=== PATIENT | male | born 1935 | race African-American/Black ===

== ENCOUNTER 2023-08-31 02:46 | Inpatient (IN) | payer OTHER, SELFPAY ==
[2023-08-31] VITALS (31 sets, daily range): BP systolic 108–152; BP diastolic 62–82; PULSE 58–88; RESP 14–27; TEMP 36.2–36.6; O2SAT 93–100
--- NOTE | ~2023-08-31 | CT_ITS ---
Clinical Indication: Shortness of breath CT Scan of the Chest with Contrast: Technique: Contiguous sections were acquired throughout the chest after intravenous administration of 100 cc of Omnipaque 350. Dose reduction technique was used on this scan by utilizing automated expos ure control and iterative reconstruction technique. The dose-length product (DLP) was 844.70 mGy-cm. Findings: There is no evidence of any significant mediastinal, hilar or axillary lymphadenopathy. There is no f illing defect in the pulmonary arterial tree to suggest pulmonary embolus. There is no evidence of ao rtic dissection or aneurysm. There is no evidence of pleural or pericardial effusion. There is moderate emphysema and/or chronic interstitial disease in the lungs. No pulmonary nodule or consolidation evident. Images through the upper abdomen reveal no abnormalities. Impression: No evidence of pulmonary embolus, aortic dissection, or aortic aneurysm. Moderate emphysema and/or chronic interstitial disease. Reviewed, dictated and finalized at [facility]. H REPAIRER Impression: No evidence of pulmonary embolus, aortic dissection, or aortic aneurysm. Moderate emphysema and/or chronic interstitial disease.
--- NOTE | ~2023-08-31 | XR_ITS ---
Clinical Indication: Cough AP and lateral views of the chest: Comparison: None Findings: There is hazy bibasilar airspace disease. No definite pleural effusions.. Cardiomediastina l silhouette is within normal limits. Bones and soft tissues are unremarkable. Impression: Probable mild bibasilar pulmonary edema. Correlate clinically for infection. Reviewed, dictated and finalized at [facility]. N CLEANER Impression: Probable mild bibasilar pulmonary edema. Correlate clinically for infection.
--- NOTE | 2023-08-31 03:03 | ECG_ITS ---
Measurements Intervals [place] Rate: 67 P: 47 MO: 250 QRS: -52 QRSD: 140 T: -20 QT: 420 QTc: 446 Interpretive Statements SINUS RHYTHM WITH FIRST DEGREE AV BLOCK RIGHT BUNDLE BRANCH BLOCK [120+ ms QRS DURATION, UPRIGHT V1, 40+ ms S IN I/aVL/V4/V5/V6] LEFT ANTERIOR FASCICULAR BLOCK [QRS AXIS <= -45, QR IN I, RS IN II] VOLTAGE CRITERIA FOR LVH [MEETS CRITERIA IN ONE OF: R(aVL), S(V1), R(V5), R(V5/V6)+S(V1)] ABNORMAL ECG NO PREVIOUS ECG AVAILABLE FOR COMPARISON Electronically Signed On 08-31-2023 7:19:02 RESIDENCE SUPERVISOR by Davin Horowitz M.D.
[2023-08-31 03:57] LABS: Basophils Absolute Auto 0.1 K/mm3 (0.0-0.1); Basophils Percent Auto 0.7 % (0.2-1.2); Eosinophils Absolute Auto 0.1 K/mm3 (0-0.3); Hemoglobin 11.7 g/dL (14.0-18.0); Immature Granulocyte Absolute 0.04 K/mm3 (0.00-0.031); Immature Granulocyte Percent A 0.6 % (0-0.5); Lymphocytes Absolute Auto 2.14 K/mm3 (0.9-3.2); Lymphocytes Percent Auto 30.3 % (18.3-44.2); Mean Corpuscular HGB Conc 30.8 g/dl (32-36); Mean Corpuscular Hemoglobin 29.1 pg (26-34); Mean Corpuscular Volume 94.5 fl (80-100); Mean Platelet Volume 10.1 fl (7.4-10.4); Monocytes Absolute Auto 0.7 K/mm3 (0.1-0.6); Monocytes Percent Auto 9.2 % (2.6-8.5); Neutrophils Percent Auto 57.2 % (45.5-73.1); Platelet Count Result 194 k/mm3 (150-375); Red Blood Count 4.02 M/mm3 (4.6-6.20); Red Cell Distribution Width 15.2 % (11.5-14.5); White Blood Count 7.1 K/mm3 (4.5-10.0)
[2023-08-31 04:10] LABS: Alanine Aminotransferase 11 U/L (6-50); Albumin Level 3.4 g/dL (3.5-5.1); Alkaline Phosphatase 111 U/L (38-126); Anion Gap 5 mmol/L (8-16); Aspartate Amino Transferase 27 U/L (17-59); Bilirubin,Total 0.5 mg/dL (0.2-1.3); Blood Urea Nitrogen 22 mg/dL (9-20); Calcium 8.8 mg/dL (8.4-10.2); Carbon Dioxide 25 mmol/L (22-30); Chloride 111 mmol/L (98-107); Estimated CRCL calculation 39 ml/min; Estimated Glomerular Filt Rate > 60; Glucose 119 mg/dL (65-110); Lactic Acid Reflex 1.3 mmol/L (0.7-2.0); Lipase 138 U/L (23-300); Magnesium 2.2 mg/dL (1.6-2.3); Potassium 4.1 mmol/L (3.4-5.0); Sodium 141 mmol/L (137-145)
[2023-08-31 04:12] LABS: Appearance Urine Clear (Clear); Bacteria Urine None Seen /hpf; Bilirubin Urine Negative (Negative); Blood Urine Negative (Negative); Color Urine Yellow (Yellow); Glucose Urine UA Negative (Negative); Ketones Urine Negative (Negative); Leukocyte Esterase Ur 2+ LEU/UL (Negative); Nitrate Urine Negative (Negative); Non Pathogenic Casts 0-2; Protein Urine Negative (Negative); RBC Urine 0-2 /hpf (0-2); Specific Grav Ur 1.017 (1.001-1.035); Squamous Epithelial Cell Urine None seen /hpf (Few); WBC Urine 21-50 /hpf; pH Urine 5.5 (5.0-9.0)
[2023-08-31 04:17] LABS: Add Urine Microscopic? YES
[2023-08-31 04:17] LABS: INR 1.1; Prothrombin Time 14.5 Seconds (11.1-14.7)
[2023-08-31 04:18] LABS: Partial Thromboplastin Time 27.5 SECONDS (22.3-36.8)
[2023-08-31 04:22] LABS: NT Pro B Type Natriuretic Pept 376 pg/mL (19.9-100); Troponin I 0.037 ng/mL (0.000-0.034)
[2023-08-31 04:25] LABS: Procalcitonin 0.1 ng/mL
[2023-08-31 04:34] LABS: Influenza A QL RT-PCR Negative (Negative); Influenza B QL RT-PCR Negative (Negative); RSV RNA, RT-PCR Negative (Negative); SARS-CoV-2 RNA PCR Negative (Negative)
--- NOTE | 2023-08-31 05:13 | ED.GENADULT ---
HPI - General Adult General Chief complaint: Upper Respiratory Infection Stated complaint: short of breath Time Seen by Provider: 08/31/23 03:14 History of Present Illness HPI narrative: Patient 88-year-old gentleman who presents emergency department with chief complaint of shortness of breath and cough. Patient has recently been diagnosed with RSV is a resident of local assisted and had a chest x-ray that showed possibility for pneumonia. The patient has had no fever the family has noticed that he has had increased dyspnea on exertion and has not been improving. Related Data Allergies Allergy/AdvReac Type Severity Reaction Status Date / Time pentazocine Allergy Unknown Other Verified 08/31/23 02:48 naloxone Allergy Other Verified 08/31/23 02:48 Review of Systems Review of Systems: A 10 system review of systems was completed on the patient and is negative except for what is stated in the HPI. Nursing and ancillary documentation was reviewed. Exam Narrative: GENERAL: Well-appearing, well-nourished, and in no acute distress. HEAD: Normocephalic, atraumatic. EYES: PERRLA and EOMI. ENT: Nares clear, no rhinorrhea or epistaxis. Mucous membranes moist. NECK: Supple. CHEST: Clear to auscultation. No respiratory distress. HEART: Regular rate and rhythm. No murmur heard. Normal peripheral pulses. ABDOMEN: Soft, nontender, nondistended, normal active bowel sounds. EXTREMITIES: Normal range of motion. No edema. SKIN: Warm, dry, no rash. NEURO: No focal deficits. Alert and oriented x3. PSYCH: Normal mood and affect. Course Vital Signs Vital signs: Vital Signs Temperature 36.2 C L 08/31/23 02:53 Pulse Rate 79 08/31/23 02:53 Respiratory Rate 20 08/31/23 02:53 Blood Pressure 144/62 H 08/31/23 02:53 Pulse Oximetry 93 08/31/23 02:53 Oxygen Delivery Room Air 08/31/23 02:53 Temperature 36.2 C L 08/31/23 02:53 Pulse Rate 79 08/31/23 02:53 Respiratory Rate 20 08/31/23 02:53 Blood Pressure 144/62 H 08/31/23 02:53 Pulse Oximetry 93 08/31/23 02:53 Oxygen Delivery Room Air 08/31/23 02:53 Medical Decision Making [facility] Narrative Medical decision making narrative: The diagnosis was pneumonia, CHF, UTI, NSTEMI, Laboratory studies were obtained on the patient showed a white count of 7.0 electrolytes are within normal limits troponin was slightly elevated at 0.039 BNP was 376 lipase is normal procalcitonin 0.1 urinalysis showed 21-50 white blood cells in the urine 2+ leukocyte esterase Viral study was initially read as negative but now is positive for RSV CTA chest showed no evidence of PE Chest x-ray showed some possible interstitial edema The patient was started on Rocephin for the urinary tract infection. The patient was given aspirin and will be treated on troponins. The patient admitted to IMU for observation Vital Signs Vital Signs: Vital Signs Temperature 36.2 C L 08/31/23 02:53 Pulse Rate 79 08/31/23 02:53 Respiratory Rate 20 08/31/23 02:53 Blood Pressure 144/62 H 08/31/23 02:53 Pulse Oximetry 93 08/31/23 02:53 Oxygen Delivery Room Air 08/31/23 02:53 Temperature 36.2 C L 08/31/23 02:53 Pulse Rate 79 08/31/23 02:53 Respiratory Rate 20 08/31/23 02:53 Blood Pressure 144/62 H 08/31/23 02:53 Pulse Oximetry 93 08/31/23 02:53 Oxygen Delivery Room Air 08/31/23 02:53 Lab Data 08/31/23 06:33 08/31/23 03:50 Labs: Lab Results 08/31/23 08/31/23 08/31/23 Range/Units 03:49 03:50 03:50 WBC 7.1 (4.5-10.0) K/mm3 RBC 4.02 L (4.6-6.20) M/mm3 Hgb 11.7 L (14.0-18.0) g/dL Hct 38.0 L (42.0-52.0) % MCV 94.5 (80-100) fl MCH 29.1 (26-34) pg MCHC 30.8 L (32-36) g/dl RDW 15.2 H (11.5-14.5) % Plt Count 194 (150-375) k/mm3 MPV 10.1 (7.4-10.4) fl Immature Gran % (Auto) 0.6 H (0-0.5) % Neut % (Auto) 57.2 (45.5-73.1) % Lymph % (Auto) 30.3
[2023-08-31 06:39] LABS: Basophils Percent Auto 0.4 % (0.2-1.2); Eosinophils Absolute Auto 0.1 K/mm3 (0-0.3); Eosinophils Percent Auto 1.6 % (0-4.4); Hematocrit 36.9 % (42.0-52.0); Hemoglobin 11.4 g/dL (14.0-18.0); Immature Granulocyte Absolute 0.03 K/mm3 (0.00-0.031); Immature Granulocyte Percent A 0.4 % (0-0.5); Lymphocytes Absolute Auto 2.27 K/mm3 (0.9-3.2); Lymphocytes Percent Auto 32.2 % (18.3-44.2); Mean Corpuscular HGB Conc 30.9 g/dl (32-36); Mean Corpuscular Hemoglobin 29.5 pg (26-34); Mean Corpuscular Volume 95.3 fl (80-100); Mean Platelet Volume 9.9 fl (7.4-10.4); Monocytes Absolute Auto 0.7 K/mm3 (0.1-0.6); Monocytes Percent Auto 10.1 % (2.6-8.5); Neutrophils Absolute Auto 3.9 K/mm3 (1.3-6.7); Neutrophils Percent Auto 55.3 % (45.5-73.1); Platelet Count Result 185 k/mm3 (150-375); Red Blood Count 3.87 M/mm3 (4.6-6.20); Red Cell Distribution Width 15.2 % (11.5-14.5)
[2023-08-31] MEDS: ASPIRIN 81 MG CHEWABLE TABLET 324 MG PO (06:42)
--- NOTE | 2023-08-31 06:42 | PC.NURSE ---
unable to scan medications. scanner in er room 7 not working.
[2023-08-31 07:04] LABS: Troponin I 0.039 ng/mL (0.000-0.034)
--- NOTE | 2023-08-31 07:15 | ECG_ITS ---
Measurements Intervals [place] Rate: 65 P: 26 MI: 268 QRS: -59 QRSD: 157 T: 12 QT: 416 QTc: 435 Interpretive Statements SINUS RHYTHM WITH FIRST DEGREE AV BLOCK MARKED LEFT AXIS DEVIATION [QRS AXIS < -30] RIGHT BUNDLE BRANCH BLOCK [120+ ms QRS DURATION, UPRIGHT V1, 40+ ms S IN I/aVL/V4/V5/V6] MINIMAL VOLTAGE CRITERIA FOR LVH, CONSIDER NORMAL VARIANT [MEETS CRITERIA IN ONE OF: R(aVL), S(V1), R(V5), R(V5/V6)+S(V1)] ABNORMAL ECG COMPARED TO ECG 08/31/2023 03:14:56 NO DIFFERENCE Electronically Signed On 08-31-2023 7:21:53 VICTIMS ADVOCATE CLERK/SPECIALIST by Davin Horowitz M.D.
[2023-08-31 07:17] LABS: Influenza A QL RT-PCR Negative (Negative); Influenza B QL RT-PCR Negative (Negative); RSV RNA, RT-PCR Positive (Negative); SARS-CoV-2 RNA PCR Negative (Negative)
--- NOTE | 2023-08-31 12:33 | ADMGEN ---
This patient, Oscar Grnat, was admitted to IMU Room 203-01 at 1147. Patient/family oriented to hospital policies and general routines including ID bracelet, bed and alarms, visiting hours, pain management, procedures, bathroom and other care routines, personal items, smoking policy, room service/diet, and visiting hours. Information on how to activate the Rapid Response Team has been discussed. Patient/Family are encouraged to report perceived risks to care and to ask questions if they do not understand what they are told or what they should do.
--- NOTE | 2023-08-31 16:09 | PM.IMHP ---
H&P: HPI History of Present Illness Date/Time: 08/31/23 16:09 Chief Complaint: Shortness of breath and cough Narrative: Patient 88-year-old gentleman who presents emergency department with chief complaint of shortness of breath and cough.? Patient has recently been diagnosed with RSV is a resident of local [facility] and had a chest x-ray that showed possibility for pneumonia.? The patient has had no fever the family has noticed that he has had increased dyspnea on exertion and has not been improving. He is confused and not able to provide me with the history of present illness. Review of Systems Review of Systems: - CONSTITUTIONAL: Denies weight loss, fever and chills. - HEENT: Denies changes in vision and hearing - RESPIRATORY: See HPI - CV: Denies palpitations and CP. - GI: Denies abdominal pain, nausea, vomiting and diarrhea. - : Denies dysuria and urinary frequency. - MSK: Denies myalgia and joint pain. - SKIN: Denies rash and pruritus. - NEUROLOGICAL: Denies headache and syncope. - PSYCHIATRIC: Denies recent changes in mood. Denies anxiety and depression. [facility] Family History Family History (Updated 08/31/23 @ 11:58 by Tracy Nelson RN) Father Cancer of lung Social History Social History Smoking status: Current every day smoker Alcohol intake: never Substance use: never Do You Feel Safe in your Home?: Yes Lack of Transportation: No Lack of Food: Never True Current Housing: I Have Housing Concerned About Future Housing: No Difficulty Paying Gas/Electric Bills: No Difficulty Paying for Meds: No Currently Unemployed: No Education: Associate Degree Difficulty w/ Childcare or Family Care: No Spiritual care concerns: No Meds Home Medications and Allergies Home Medications Medication Instructions Recorded Confirmed Type acetaminophen 500 mg tablet 1,000 mg PO QID PRN Pain (Scale 08/31/23 08/31/23 History Score 1-3) albuterol sulfate 90 mcg/actuation 2 puff inhalation Q8H 08/31/23 08/31/23 History aerosol inhaler amitriptyline 10 mg tablet 20 mg PO HS 08/31/23 08/31/23 History amlodipine 5 mg tablet 5 mg DAILY 08/31/23 08/31/23 History ascorbic acid (vitamin C) 500 mg 500 mg PO DAILY 08/31/23 08/31/23 History tablet aspirin 81 mg tablet 81 mg PO DAILY 08/31/23 08/31/23 History atorvastatin 40 mg tablet 40 mg DAILY 08/31/23 08/31/23 History budesonide-formoterol HFA 80 1 inh inhalation BID 08/31/23 08/31/23 History mcg-4.5 mcg/actuation aerosol inhaler (Symbicort) calcium carbonate 600 mg calcium 600 mg PO DAILY 08/31/23 08/31/23 History (1,500 mg) tablet cetirizine 10 mg tablet 10 mg PO DAILY 08/31/23 08/31/23 History cholecalciferol (vitamin D3) 50 50 mcg PO DAILY 08/31/23 08/31/23 History mcg (2,000 unit) tablet ferrous sulfate 325 mg (65 mg 325 mg PO DAILY 08/31/23 08/31/23 History iron) tablet finasteride 5 mg tablet 5 mg DAILY 08/31/23 08/31/23 History fluticasone propionate 50 2 spray intranasal POST-TRANSFUSION 08/31/23 08/31/23 History mcg/actuation nasal spray,suspension guaifenesin 400 mg tablet 400 mg PO BID 08/31/23 08/31/23 History hydrocodone 7.5 mg-acetaminophen 1 tablet TID 08/31/23 08/31/23 History 325 mg tablet ipratropium 0.5 mg-albuterol 3 mg 3 ml inhalation Q6H 08/31/23 08/31/23 History (2.5 mg base)/3 mL nebulization soln latanoprost 0.005 % eye drops 1 drp HS 08/31/23 08/31/23 History lisinopril 20 mg tablet 20 mg DAILY 08/31/23 08/31/23 History megestrol 400 mg/10 mL (40 mg/mL) 400 mg BID 08/31/23 08/31/23 History oral suspension memantine 5 mg tablet 5 mg DAILY 08/31/23 08/31/23 History omeprazole 20 mg capsule,delayed 20 mg DAILY 08/31/23 08/31/23 History release polyethylene glycol 3350 17 gram 17 g PO DAILY PRN Constipation 08/31/23 08/31/23 History oral powder packet psyllium husk 3.4 gram/5.4 gram 1 ts
[2023-08-31] MEDS: MEGESTROL ACETATE (*CHEMO) ORAL SUSP 40 MG/ML SYR 400 MG PO (17:19)
[2023-08-31] MEDS: FLUTICASONE/SALMETEROL 45-21 MCG INHALER 1 PUFF 2 PUFF INHALATION (20:07)
[2023-08-31] MEDS: IPRATROPIUM 0.5 MG/ALBUTEROL SULFATE 2.5 MG AMPUL.NEB 3 ML INHALATION (20:07)
[2023-08-31] MEDS: SERTRALINE HCL 50 MG TABLET 100 MG BY MOUTH (21:18)
[2023-08-31] MEDS: AMITRIPTYLINE HCL 10 MG TABLET 20 MG PO (21:18)
[2023-08-31] MEDS: guaiFENesin 12 HR 600 MG TABCR PO (21:18)
[2023-08-31] MEDS: LATANOPROST 0.005% OP SOLN 2.5 ML BTL 1 DROP EACH EYE (21:20)
[2023-09-01] VITALS (13 sets, daily range): BP systolic 120–153; BP diastolic 63–70; PULSE 63–74; RESP 14–18; TEMP 36.4–36.6; O2SAT 96–100
[2023-09-01 06:46] LABS: Basophils Absolute Auto 0.1 K/mm3 (0.0-0.1); Basophils Percent Auto 0.7 % (0.2-1.2); Eosinophils Absolute Auto 0.1 K/mm3 (0-0.3); Eosinophils Percent Auto 1.9 % (0-4.4); Hematocrit 40.4 % (42.0-52.0); Hemoglobin 12.6 g/dL (14.0-18.0); Immature Granulocyte Absolute 0.03 K/mm3 (0.00-0.031); Immature Granulocyte Percent A 0.4 % (0-0.5); Lymphocytes Absolute Auto 2.09 K/mm3 (0.9-3.2); Lymphocytes Percent Auto 30.9 % (18.3-44.2); Mean Corpuscular HGB Conc 31.2 g/dl (32-36); Mean Corpuscular Hemoglobin 29.3 pg (26-34); Mean Platelet Volume 9.9 fl (7.4-10.4); Monocytes Absolute Auto 0.7 K/mm3 (0.1-0.6); Monocytes Percent Auto 9.9 % (2.6-8.5); Neutrophils Absolute Auto 3.8 K/mm3 (1.3-6.7); Neutrophils Percent Auto 56.2 % (45.5-73.1); Platelet Count Result 199 k/mm3 (150-375); Red Cell Distribution Width 15.1 % (11.5-14.5); White Blood Count 6.8 K/mm3 (4.5-10.0)
[2023-09-01 06:57] LABS: Alanine Aminotransferase 10 U/L (6-50); Albumin Level 3.5 g/dL (3.5-5.1); Alkaline Phosphatase 101 U/L (38-126); Anion Gap 6 mmol/L (8-16); Aspartate Amino Transferase 27 U/L (17-59); Bilirubin,Total 0.6 mg/dL (0.2-1.3); Blood Urea Nitrogen 18 mg/dL (9-20); Calcium 8.9 mg/dL (8.4-10.2); Carbon Dioxide 23 mmol/L (22-30); Chloride 110 mmol/L (98-107); Estimated CRCL calculation 39 ml/min; Estimated Glomerular Filt Rate > 60; Glucose 88 mg/dL (65-110); Magnesium 2.2 mg/dL (1.6-2.3); Potassium 4.4 mmol/L (3.4-5.0); Sodium 139 mmol/L (137-145)
[2023-09-01] MEDS: FLUTICASONE/SALMETEROL 45-21 MCG INHALER 1 PUFF 2 PUFF INHALATION ×2 (08:18→21:30)
[2023-09-01] MEDS: IPRATROPIUM 0.5 MG/ALBUTEROL SULFATE 2.5 MG AMPUL.NEB 3 ML INHALATION ×3 (08:19→21:20)
[2023-09-01] MEDS: LORATADINE 10 MG TABLET PO (11:23)
[2023-09-01] MEDS: ENOXAPARIN 40 MG/0.4 ML SYRINGE SUB-Q (11:23)
[2023-09-01] MEDS: amLODIPine BESYLATE 5 MG TABLET BY MOUTH (11:23)
[2023-09-01] MEDS: guaiFENesin 12 HR 600 MG TABCR PO ×2 (11:24→21:48)
[2023-09-01] MEDS: ASPIRIN 81 MG ENTERIC TABLET PO (11:24)
[2023-09-01] MEDS: CALCIUM CARBONATE (OSCAL) 500 MG TABLET PO (11:24)
[2023-09-01] MEDS: ASPIRIN 81 MG CHEWABLE TABLET PO (11:24)
[2023-09-01] MEDS: PANTOPRAZOLE 40 MG TABLET PO (11:24)
[2023-09-01] MEDS: MEMANTINE 5 MG TABLET BY MOUTH (11:24)
[2023-09-01] MEDS: FERROUS SULFATE 325 MG TABLET DR BY MOUTH (11:24)
[2023-09-01] MEDS: ASCORBIC ACID 500 MG TABLET PO (11:25)
[2023-09-01] MEDS: TAMSULOSIN HCL 0.4 MG CAPSULE PO (11:25)
[2023-09-01] MEDS: FINASTERIDE 5 MG TABLET BY MOUTH (11:25)
[2023-09-01] MEDS: CHOLECALCIFEROL 1,000 UNITS TABLET 2000 UNITS PO (11:25)
[2023-09-01] MEDS: lisinopriL 20 MG TABLET BY MOUTH (11:25)
[2023-09-01] MEDS: VITAMIN B COMPLEX CAPSULE 1 CAP PO (11:25)
[2023-09-01] MEDS: ATORVASTATIN 40 MG TABLET BY MOUTH (11:26)
[2023-09-01] MEDS: FLUTICASONE PROPIONATE 0.05% NA SPR 16 GM BTL (*BKC) 2 SPRAY NASAL (11:28)
[2023-09-01] MEDS: MEGESTROL ACETATE (*CHEMO) ORAL SUSP 40 MG/ML SYR 400 MG PO ×2 (11:35→17:50)
[2023-09-01] MEDS: PSYLLIUM POWDER PACKET 1 PACKET PO (11:35)
--- NOTE | 2023-09-01 13:43 | PM.IMPN ---
Progress Note: A&P Assessment and Plan (1) Acute UTI: Code(s): N39.0 - Urinary tract infection, site not specified Status: Acute (2) RSV infection: Code(s): B33.8 - Other specified viral diseases Status: Acute (3) Elevated troponin: Code(s): R79.89 - Other specified abnormal findings of blood chemistry Status: Acute Plan This is the 88-year-old man who presented with shortness of breath and cough. Is a resident of a local long term. Chest x-ray done in the long term showed possibility of pneumonia and hence was sent to the ER for evaluation. He has been increasingly short of breath over the past few days. On ED evaluation his vitals were stable oxygenation were adequate on room air. Laboratory evaluation revealed WBC count of 7 hemoglobin of 11 point fall or which is at baseline. CMP within normal limit. Procalcitonin was 0.1 influenza RSV COVID negative. Lactic acid was 1.3. Troponin was mildly elevated at 0.037 BNP was 376. Repeat troponin was 0.039 remain flat UA was positive for UTI with WBC 20 1-50 with positive leukocyte esterase. Repeat respiratory swab came back positive for RSV remains negative for COVID influenza a and B negative. EKG with sinus rhythm first-degree AV block marked left axis deviation with right bundle-branch block. Serial troponins flat not suggestive of acute coronary syndrome. Chest x-ray showed probable mild bibasilar pulmonary edema. CTA was done which showed no evidence of PE aortic dissection or aortic aneurysm. There is moderate emphysema and/or chronic interstitial disease. Urine culture with Gram-positive organism less than 10,000 isolated and blood cultures pending. He has been started on ceftriaxone which will be continued. RSV infection Dementia History of hypertension/hyperlipidemia/BPH/COPD DVT prophylaxis Lovenox Subjective Date/time seen: 09/01/23 13:43 Interval history: No overnight events. Feels well no chest pain no shortness of breath minimal cough Review of Systems Review of Systems: All systems reviewed & are unremarkable except as noted in HPI and below Exam Narrative: GENERAL: Well-appearing, well-nourished, and in no acute distress. HEAD: Normocephalic, atraumatic. EYES: PERRLA and EOMI. ENT: Nares clear, no rhinorrhea or epistaxis.? Mucous membranes moist. NECK: Supple. CHEST: Clear to auscultation.? No respiratory distress. HEART: Regular rate and rhythm.? No murmur heard.? Normal peripheral pulses. ABDOMEN: Soft, nontender, nondistended, normal active bowel sounds. EXTREMITIES: Normal range of motion.? No edema. SKIN: Warm, dry, no rash. NEURO: No focal deficits.? Alert and oriented x3. PSYCH: Normal mood and affect. Objective Data Vital Signs Vital Signs: Vital Signs - 24 hr 08/31/23 14:00 08/31/23 16:00 08/31/23 16:00 Temperature 97.8 F Pulse Rate 64 60 Respiratory Rate 16 Blood Pressure 152/67 H Pulse Oximetry 100 100 Oxygen Delivery Room Air 08/31/23 16:00 08/31/23 19:40 08/31/23 20:07 Temperature 97.6 F Pulse Rate 71 60 62 Respiratory Rate 18 18 Blood Pressure 108/64 Pulse Oximetry 98 Oxygen Delivery 08/31/23 20:11 08/31/23 20:14 09/01/23 05:37 Temperature 97.9 F Pulse Rate 62 64 67 Respiratory Rate 18 18 Blood Pressure 153/63 H Pulse Oximetry 97 100 Oxygen Delivery Room Air 09/01/23 08:20 09/01/23 08:15 09/01/23 08:24 Temperature Pulse Rate 69 73 Respiratory Rate 18 18 Blood Pressure Pulse Oximetry 96 Oxygen Delivery Room Air 09/01/23 11:19 09/01/23 08:00 09/01/23 11:35 Temperature Pulse Rate 73 Respiratory Rate 18 Blood Pressure Pulse Oximetry 96 Oxygen Delivery Room Air Room Air Room Air Intake/Output Intake/Output: Intake & Output 08/29/23 08/30/23 08/31/23 09/01/23 23:59 23:59 23:59 23:59 Intake Total 1010 370 Balance 1010 370 Meds/Results Medications: Active Medications Generi
[2023-09-01] MEDS: HYDROcodone/acetaminophen (*CRX) 7.5-325 MG TABLET 1 TAB BY MOUTH (17:53)
--- NOTE | 2023-09-01 19:45 | PC.NURSE ---
On 09/01/23, the student, Rick Le, provided care and completed [facility] documentation on this patient. I have reviewed the student's documentation and agree with the findings.
[2023-09-01] MEDS: LATANOPROST 0.005% OP SOLN 2.5 ML BTL 1 DROP EACH EYE (21:48)
[2023-09-01] MEDS: SERTRALINE HCL 50 MG TABLET 100 MG BY MOUTH (21:48)
[2023-09-01] MEDS: AMITRIPTYLINE HCL 10 MG TABLET 20 MG PO (21:48)
[2023-09-02] VITALS (12 sets, daily range): BP systolic 109–116; BP diastolic 54–62; PULSE 60–75; RESP 16–20; TEMP 36.3–36.8; O2SAT 96–98
[2023-09-02] MEDS: HYDROcodone/acetaminophen (*CRX) 7.5-325 MG TABLET 1 TAB BY MOUTH ×2 (01:11→17:41)
[2023-09-02] MEDS: IPRATROPIUM 0.5 MG/ALBUTEROL SULFATE 2.5 MG AMPUL.NEB 3 ML INHALATION ×4 (02:51→20:59)
[2023-09-02] MEDS: FLUTICASONE/SALMETEROL 45-21 MCG INHALER 1 PUFF 2 PUFF INHALATION ×2 (08:46→20:58)
[2023-09-02] MEDS: ENOXAPARIN 40 MG/0.4 ML SYRINGE SUB-Q (10:04)
[2023-09-02] MEDS: ASPIRIN 81 MG ENTERIC TABLET PO (10:04)
[2023-09-02] MEDS: FINASTERIDE 5 MG TABLET BY MOUTH (10:04)
[2023-09-02] MEDS: CHOLECALCIFEROL 1,000 UNITS TABLET 2000 UNITS PO (10:04)
[2023-09-02] MEDS: PSYLLIUM POWDER PACKET 1 PACKET PO (10:04)
[2023-09-02] MEDS: amLODIPine BESYLATE 5 MG TABLET BY MOUTH (10:06)
[2023-09-02] MEDS: MEGESTROL ACETATE (*CHEMO) ORAL SUSP 40 MG/ML SYR 400 MG PO ×2 (10:06→17:42)
[2023-09-02] MEDS: MEMANTINE 5 MG TABLET BY MOUTH (10:07)
[2023-09-02] MEDS: CALCIUM CARBONATE (OSCAL) 500 MG TABLET PO (10:07)
[2023-09-02] MEDS: ATORVASTATIN 40 MG TABLET BY MOUTH (10:07)
[2023-09-02] MEDS: PANTOPRAZOLE 40 MG TABLET PO (10:07)
[2023-09-02] MEDS: guaiFENesin 12 HR 600 MG TABCR PO ×2 (10:07→21:10)
[2023-09-02] MEDS: ASCORBIC ACID 500 MG TABLET PO (10:07)
[2023-09-02] MEDS: lisinopriL 20 MG TABLET BY MOUTH (10:08)
[2023-09-02] MEDS: VITAMIN B COMPLEX CAPSULE 1 CAP PO (10:08)
[2023-09-02] MEDS: LORATADINE 10 MG TABLET PO (10:08)
[2023-09-02] MEDS: FERROUS SULFATE 325 MG TABLET DR BY MOUTH (10:09)
[2023-09-02] MEDS: TAMSULOSIN HCL 0.4 MG CAPSULE PO (10:09)
[2023-09-02] MEDS: FLUTICASONE PROPIONATE 0.05% NA SPR 16 GM BTL (*BKC) 2 SPRAY NASAL (10:11)
--- NOTE | 2023-09-02 12:47 | PM.IMPN ---
Progress Note: A&P Assessment and Plan (1) Acute UTI: Code(s): N39.0 - Urinary tract infection, site not specified Status: Acute (2) RSV infection: Code(s): B33.8 - Other specified viral diseases Status: Acute (3) Elevated troponin: Code(s): R79.89 - Other specified abnormal findings of blood chemistry Status: Acute Plan This is the 88-year-old man who presented with shortness of breath and cough. Is a resident of a local [facility]. [facility] x-ray done in the [facility] showed possibility of pneumonia and hence was sent to the ER for evaluation. He has been increasingly short of breath over the past few days. On ED evaluation his vitals were stable oxygenation were adequate on room air. Laboratory evaluation revealed WBC count of 7 hemoglobin of 11 point fall or which is at baseline. CMP within normal limit. Procalcitonin was 0.1 influenza RSV COVID negative. Lactic acid was 1.3. Troponin was mildly elevated at 0.037 BNP was 376. Repeat troponin was 0.039 remain flat UA was positive for UTI with WBC 20 1-50 with positive leukocyte esterase. Repeat respiratory swab came back positive for RSV remains negative for COVID influenza a and B negative. EKG with sinus rhythm first-degree AV block marked left axis deviation with right bundle-branch block. Serial troponins flat not suggestive of acute coronary syndrome. Chest x-ray showed probable mild bibasilar pulmonary edema. CTA was done which showed no evidence of PE aortic dissection or aortic aneurysm. There is moderate emphysema and/or chronic interstitial disease. Urine culture with Gram-positive organism less than 10,000 isolated and blood cultures pending. He has been started on ceftriaxone which will be continued. Will switch to oral cefdinir RSV infection Dementia History of hypertension/hyperlipidemia/BPH/COPD DVT prophylaxis Lovenox Disposition: Care coordination on board for placement Subjective Date/time seen: 09/02/23 12:47 Interval history: No overnight events. Feels okay. Minimal cough denies any shortness of breath Review of Systems Review of Systems: All systems reviewed & are unremarkable except as noted in HPI and below Exam Narrative: GENERAL: Well-appearing, well-nourished, and in no acute distress. HEAD: Normocephalic, atraumatic. EYES: PERRLA and EOMI. ENT: Nares clear, no rhinorrhea or epistaxis.? Mucous membranes moist. NECK: Supple. CHEST: Clear to auscultation.? No respiratory distress. HEART: Regular rate and rhythm.? No murmur heard.? Normal peripheral pulses. ABDOMEN: Soft, nontender, nondistended, normal active bowel sounds. EXTREMITIES: Normal range of motion.? No edema. SKIN: Warm, dry, no rash. NEURO: No focal deficits.? Alert and oriented x3. PSYCH: Normal mood and affect. Objective Data Vital Signs Vital Signs: Vital Signs - 24 hr 09/01/23 14:18 09/01/23 14:48 09/01/23 14:57 Temperature 97.8 F Pulse Rate 63 74 68 Respiratory Rate 14 18 18 Blood Pressure 128/70 Pulse Oximetry 100 Oxygen Delivery 09/01/23 20:21 09/01/23 21:20 09/01/23 21:30 Temperature 97.6 F Pulse Rate 73 72 68 Respiratory Rate 18 18 18 Blood Pressure 120/68 Pulse Oximetry 97 Oxygen Delivery 09/01/23 21:45 09/01/23 20:00 09/02/23 02:51 Temperature Pulse Rate 68 65 Respiratory Rate 18 16 Blood Pressure Pulse Oximetry 96 96 Oxygen Delivery Room Air Room Air 09/02/23 02:56 09/02/23 05:56 09/02/23 08:46 Temperature 98 F Pulse Rate 68 60 60 Respiratory Rate 16 18 16 Blood Pressure 116/54 L Pulse Oximetry 97 Oxygen Delivery 09/02/23 08:57 Temperature Pulse Rate 62 Respiratory Rate 16 Blood Pressure Pulse Oximetry Oxygen Delivery Intake/Output Intake/Output: Intake & Output 08/30/23 08/31/23 09/01/23 09/02/23 23:59 23:59 23:59 23:59 Intake Total 1010 630 170 Balance 1010 630 170 Meds/Results Medications: Active Medicatio
--- NOTE | 2023-09-02 19:58 | PC.NURSE ---
On 09/02/23, the student, Rick Le, provided care and completed [facility] documentation on this patient. I have reviewed the student's documentation and agree with the findings.
[2023-09-02] MEDS: AMITRIPTYLINE HCL 10 MG TABLET 20 MG PO (21:10)
[2023-09-02] MEDS: LATANOPROST 0.005% OP SOLN 2.5 ML BTL 1 DROP EACH EYE (21:11)
[2023-09-02] MEDS: CEFDINIR 300 MG CAPSULE PO (21:11)
[2023-09-02] MEDS: SERTRALINE HCL 50 MG TABLET 100 MG BY MOUTH (21:11)
[2023-09-03] VITALS (7 sets, daily range): BP systolic 142; BP diastolic 66; PULSE 66–88; RESP 16–20; TEMP 37; O2SAT 96–98
[2023-09-03] MEDS: IPRATROPIUM 0.5 MG/ALBUTEROL SULFATE 2.5 MG AMPUL.NEB 3 ML INHALATION ×3 (02:13→14:27)
[2023-09-03] MEDS: HYDROcodone/acetaminophen (*CRX) 7.5-325 MG TABLET 1 TAB BY MOUTH (06:00)
[2023-09-03] MEDS: ASPIRIN 81 MG ENTERIC TABLET PO (09:53)
[2023-09-03] MEDS: VITAMIN B COMPLEX CAPSULE 1 CAP PO (09:53)
[2023-09-03] MEDS: TAMSULOSIN HCL 0.4 MG CAPSULE PO (09:53)
[2023-09-03] MEDS: ACETAMINOPHEN 500 MG TABLET 1000 MG PO (09:53)
[2023-09-03] MEDS: CHOLECALCIFEROL 1,000 UNITS TABLET 2000 UNITS PO (09:53)
[2023-09-03] MEDS: MEGESTROL ACETATE (*CHEMO) ORAL SUSP 40 MG/ML SYR 400 MG PO (09:53)
[2023-09-03] MEDS: CEFDINIR 300 MG CAPSULE PO (09:53)
[2023-09-03] MEDS: PSYLLIUM POWDER PACKET 1 PACKET PO (09:54)
[2023-09-03] MEDS: amLODIPine BESYLATE 5 MG TABLET BY MOUTH (09:54)
[2023-09-03] MEDS: FLUTICASONE PROPIONATE 0.05% NA SPR 16 GM BTL (*BKC) 2 SPRAY NASAL (09:54)
[2023-09-03] MEDS: MEMANTINE 5 MG TABLET BY MOUTH (09:54)
[2023-09-03] MEDS: guaiFENesin 12 HR 600 MG TABCR PO (09:54)
[2023-09-03] MEDS: LORATADINE 10 MG TABLET PO (09:54)
[2023-09-03] MEDS: ASCORBIC ACID 500 MG TABLET PO (09:54)
[2023-09-03] MEDS: CALCIUM CARBONATE (OSCAL) 500 MG TABLET PO (09:54)
[2023-09-03] MEDS: PANTOPRAZOLE 40 MG TABLET PO (09:54)
[2023-09-03] MEDS: ATORVASTATIN 40 MG TABLET BY MOUTH (09:54)
[2023-09-03] MEDS: lisinopriL 20 MG TABLET BY MOUTH (09:54)
[2023-09-03] MEDS: FINASTERIDE 5 MG TABLET BY MOUTH (09:54)
[2023-09-03] MEDS: FERROUS SULFATE 325 MG TABLET DR BY MOUTH (09:54)
[2023-09-03] MEDS: ENOXAPARIN 40 MG/0.4 ML SYRINGE SUB-Q (09:55)
[2023-09-03] MEDS: FLUTICASONE/SALMETEROL 45-21 MCG INHALER 1 PUFF 2 PUFF INHALATION (10:10)
--- NOTE | 2023-09-03 12:40 | PM.DS ---
DS: Admitting Diagnosis Discharge Date 09/03/2023 Admitting Diagnosis Shortness of breath DS: Discharge Diagnosis Discharge Diagnosis (1) Acute UTI: Code(s): N39.0 - Urinary tract infection, site not specified Status: Acute (2) RSV infection: Code(s): B33.8 - Other specified viral diseases Status: Acute (3) Elevated troponin: Code(s): R79.89 - Other specified abnormal findings of blood chemistry Status: Acute DS: Summary Hospital Course Hospital Course: This is the 88-year-old man who presented with shortness of breath and cough.? Is a resident of a local senior care.? Chest x-ray done in the senior care showed possibility of pneumonia and hence was sent to the ER for evaluation.? He has been increasingly short of breath over the past few days.? On ED evaluation his vitals were stable oxygenation were adequate on room air.? Laboratory evaluation revealed WBC count of 7 hemoglobin of 11 point fall or which is at baseline.? CMP within normal limit.? Procalcitonin was 0.1 influenza RSV COVID negative.? Lactic acid was 1.3.? Troponin was mildly elevated at 0.037 BNP was 376.? Repeat troponin was 0.039 remain flat UA was positive for UTI with WBC 20 1-50 with positive leukocyte esterase.? Repeat respiratory swab came back positive for RSV remains negative for COVID influenza a and B negative.? EKG with sinus rhythm first-degree AV block marked left axis deviation with right bundle-branch block.? Serial troponins flat not suggestive of acute coronary syndrome.? Chest x-ray showed probable mild bibasilar pulmonary edema.? CTA was done which showed no evidence of PE aortic dissection or aortic aneurysm.? There is moderate emphysema and/or chronic interstitial disease.? Urine culture with Gram-positive organism less than 10,000 isolated and blood cultures pending.? He has been started on ceftriaxone which will be continued.? Switched to oral cefdinir and will be continued at discharge to finish the course RSV infection Dementia History of hypertension/hyperlipidemia/BPH/COPD DVT prophylaxis Lovenox Disposition:? Care coordination on board for placement Time Spent with Patient Time attestation: Total time spent providing and/or coordinating discharge services: 35 minutes Exam Narrative: GENERAL: Well-appearing, well-nourished, and in no acute distress. HEAD: Normocephalic, atraumatic. EYES: PERRLA and EOMI. ENT: Nares clear, no rhinorrhea or epistaxis.? Mucous membranes moist. NECK: Supple. CHEST: Clear to auscultation.? No respiratory distress. HEART: Regular rate and rhythm.? No murmur heard.? Normal peripheral pulses. ABDOMEN: Soft, nontender, nondistended, normal active bowel sounds. EXTREMITIES: Normal range of motion.? No edema. SKIN: Warm, dry, no rash. NEURO: No focal deficits.? Alert and oriented x3. PSYCH: Normal mood and affect. DS: Data Data Completed and Pending Labs on day of discharge: Preliminary micro results at discharge 08/31/23 03:50 Blood Culture - Preliminary Blood 08/31/23 03:49 Blood Culture - Preliminary Blood Imaging Radiologist's impression: ITS Impressions Chest X-Ray 08/31/23 06:10 Impression: Probable mild bibasilar pulmonary edema. Correlate clinically for infection. Chest CTA 08/31/23 06:18 Impression: No evidence of pulmonary embolus, aortic dissection, or aortic aneurysm. Moderate emphysema and/or chronic interstitial disease. Discharge Plan Discharge Attending physician on discharge: Foster Cannon Discharging Clinician: Foster Cannon Anticipated Discharge Date/Time: 09/03/23 12:37 Patient Disposition: SNF Activity: as tolerated Diet: heart healthy Discharge Instructions: Please follow-up with Dr Hobbs, Neurology in office after youo are discharged. Patient Instructions: Antibiotic Form Stand Alone Forms: General Discharge Information, [facility] Discharge Follow-up/Referrals
== END 2023-09-03 16:00 | DRG 866 ==
LOC: ANHED 07:25 → ANHIMU 08:09 → ANH3MED 18:26
PROVIDERS: Admitting Provider Internal Medicine; Emergency Provider Emergency Medicine; PCP Hospitalist; Visit Provider Internal Medicine
DX: B33.8 Other specified viral diseases (principal); N39.0 Urinary tract infection, site not specified; E78.5 Hyperlipidemia, unspecified; F03.90 Unspecified dementia, unspecified severity, without behavioral disturbance, psychotic disturbance, mood disturbance, and anxiety; F17.290 Nicotine dependence, other tobacco product, uncomplicated; I10 Essential (primary) hypertension; I44.0 Atrioventricular block, first degree; J43.9 Emphysema, unspecified; N40.0 Benign prostatic hyperplasia without lower urinary tract symptoms; R79.89 Other specified abnormal findings of blood chemistry; Z11.52 Encounter for screening for COVID-19; Z79.82 Long term (current) use of aspirin
CPT/HCPCS: 36415; 71046; 71275; 80053; 81001; 83605; 83690; 83735; 83880; 84145; 84484; 85025; 85610; 85730; 87040; 87086; 87637; 93005; 94640; 96365; 96367; 97161; 97165; 99285; A9270; G0378; J0696; J1650; Q9967